=== PATIENT | female | born 1940 | race Caucasian/White ===

== ENCOUNTER → 2016-08-10 | Outpatient (CLI) | payer MEDICARE, OTHER | END | disposition disaster alternative care site (69) | LOC: GRAD 08:17 | DX: C18.0 Malignant neoplasm of cecum (principal); D50.0 Iron deficiency anemia secondary to blood loss (chronic); D70.1 Agranulocytosis secondary to cancer chemotherapy; D69.59 Other secondary thrombocytopenia; K63.89 Other specified diseases of intestine; K21.9 Gastro-esophageal reflux disease without esophagitis; E87.6 Hypokalemia; G62.0 Drug-induced polyneuropathy; Z90.710 Acquired absence of both cervix and uterus | CPT/HCPCS: Q9967 ==

== ENCOUNTER → 2016-10-19 | Outpatient (CLI) | payer MEDICARE, OTHER ==
[~2016-10-19] MED LIST: ASPIRIN (CHILDR81 MG PO; CARAFATE1 GM PO; COLACE100 MG PO; DECADRON4 MG PO; HYGROTON25 MG PO; LIPITOR20 M1 PO; MEGACE SUSP40 MG/ML PO; PRINIVIL (ZESTR20 MG PO; PROTONIX40 MG PO; REGLAN10 MG PO; REMERON15 MG PO; ZOFRAN8 MG PO
== END | disposition disaster alternative care site (69) ==
LOC: GRAD 12:45
DX: C18.0 Malignant neoplasm of cecum (principal); D50.0 Iron deficiency anemia secondary to blood loss (chronic); D70.1 Agranulocytosis secondary to cancer chemotherapy; E87.6 Hypokalemia; G62.0 Drug-induced polyneuropathy; D69.59 Other secondary thrombocytopenia; Z98.890 Other specified postprocedural states
CPT/HCPCS: Q9967

== ENCOUNTER → 2016-12-24 | Outpatient (CLI) | payer MEDICARE, OTHER | LOC: LFPA 08:43 | DX: Z86.19 Personal history of other infectious and parasitic diseases (principal) ==

== ENCOUNTER → 2016-12-28 | Outpatient (CLI) | payer MEDICARE, OTHER | END | disposition disaster alternative care site (69) | LOC: GRAD 06:41 | DX: C18.0 Malignant neoplasm of cecum (principal); D50.0 Iron deficiency anemia secondary to blood loss (chronic); D70.9 Neutropenia, unspecified; D70.1 Agranulocytosis secondary to cancer chemotherapy; E87.6 Hypokalemia; K21.9 Gastro-esophageal reflux disease without esophagitis; G62.0 Drug-induced polyneuropathy; D69.59 Other secondary thrombocytopenia; R10.9 Unspecified abdominal pain; I70.90 Unspecified atherosclerosis; Z98.890 Other specified postprocedural states ==

== ENCOUNTER → 2017-01-04 | Outpatient (CLI) | payer MEDICARE, OTHER | END | disposition disaster alternative care site (69) | LOC: GRAD 09:30 | DX: C78.6 Secondary malignant neoplasm of retroperitoneum and peritoneum (principal); R10.9 Unspecified abdominal pain; R14.0 Abdominal distension (gaseous); C18.0 Malignant neoplasm of cecum; D50.0 Iron deficiency anemia secondary to blood loss (chronic); D70.9 Neutropenia, unspecified; D70.1 Agranulocytosis secondary to cancer chemotherapy; E87.6 Hypokalemia; K21.9 Gastro-esophageal reflux disease without esophagitis; D69.59 Other secondary thrombocytopenia; G62.0 Drug-induced polyneuropathy; K90.9 Intestinal malabsorption, unspecified ==